=== PATIENT | male | born 1985 | race African-American/Black ===

== ENCOUNTER 2016-12-03 11:48 | Emergency (ER) | payer SELFPAY ==
[~2016-12-03] VITALS: Ht 180.3 cm; Wt 75.0 kg
[2016-12-03] MEDS ORDERED: MIDAZOLAM HCL 2 MG/2 ML VIAL IM ONE (12:15)
[2016-12-03] MEDS ORDERED: SODIUM CHLORIDE 0.9% 1,000 ML IV ONE (12:26)
[2016-12-03 12:54] LABS: BASOPHILS % 2.4 % (0.0-2.0); EOSINOPHILS % 0.3 % (0.0-5.0); HEMATOCRIT. 44.3 % (42.0-52.0); LYMPHOCYTES % 48.3 % (20.0-50.0); MEAN CORPUSCULAR HEMOGLOBIN 32.9 pg (28.0-32.0); MEAN PLATELET VOLUME 7.5 fl (7.4-10.4); MONOCYTES % 8.9 % (2.0-8.0); NEUTROPHILS % 40.1 % (40.0-76.0); PLATELET 344 x1000/uL (130-400); RED BLOOD CELL COUNT 4.56 mill/uL (4.7-6.1); RED CELL DISTRIBUTION WIDTH 14.2 % (11.6-14.6)
[2016-12-03 13:02] LABS: PROTHROMBIN TIME 10.7 sec
[2016-12-03 13:07] LABS: CARBON DIOXIDE 19 mEq/L (21-32); CHLORIDE 108 mEq/L (98-107)
[2016-12-03 13:18] LABS: ETHANOL BLOOD 362 mg/dL
[2016-12-03] MEDS ORDERED: LORAZEPAM 2MG/ML CPJ IV ONE (15:00)
[2016-12-03] MEDS ORDERED: LORAZEPAM 2MG/ML CPJ ONE (15:02)
[2016-12-03 15:25] LABS: CLARITY URINE CLEAR (CLEAR); COLOR URINE YELLOW (YELLOW); GLUCOSE URINE NEGATIVE (NEGATIVE); KETONES URINE 1+ (NEGATIVE); LEUKOCYTE ESTERASE URINE NEGATIVE (NEGATIVE); NITRITE URINE NEGATIVE (NEGATIVE); OCCULT BLOOD URINE NEGATIVE (NEGATIVE); PH URINE 5.5 (4.5-8.0); PROTEIN URINE TRACE (NEGATIVE); SPECIFIC GRAVITY URINE 1.016 (1.005-1.030); UROBILINOGEN URINE 0.2 E.U./dL (0.2-1.0)
[2016-12-03 15:40] LABS: *AMPHETAMINES SCREEN URINE NEGATIVE (NEGATIVE); *BARBITURATES SCREEN URINE NEGATIVE (NEGATIVE); *BENZODIAZEPINES SCREEN URINE PRESUMTIVE POSITIVE (NEGATIVE); *COCAINE SCREEN URINE NEGATIVE (NEGATIVE); CANNABINOID URINE SCREEN PRESUMTIVE POSITIVE (NEGATIVE); METHADONE URINE SCREEN NEGATIVE (NEGATIVE); OPIATES URINE SCREEN NEGATIVE (NEGATIVE); PHENCYCLIDINE URINE SCREEN NEGATIVE (NEGATIVE)
[2016-12-03 17:46] VITALS: BP 129/79
== END 2016-12-03 17:47 | disposition home or self-care (01) ==
LOC: ER 11:54
DX: T51.91XA Toxic effect of unspecified alcohol, accidental (unintentional), initial encounter (principal); Y90.8 Blood alcohol level of 240 mg/100 ml or more; F10.10 Alcohol abuse, uncomplicated; Y92.89 Other specified places as the place of occurrence of the external cause; F17.210 Nicotine dependence, cigarettes, uncomplicated; Z86.59 Personal history of other mental and behavioral disorders
CPT/HCPCS: 36415; 80053; 80305; 80307; 80329; 81001; 85025; 85610; 96361; 96372; 96374; 99284; G0482; J2060; J2250; J7030; Z7610